=== PATIENT | female | born 1985 | race Caucasian/White ===

== ENCOUNTER 2017-02-25 09:28 | Emergency (ER) | payer OTHER ==
[~2017-02-25] VITALS: Ht 175.3 cm; Wt 75.4 kg
[~2017-02-25 09:28] MED LIST: bactrim; keflex
[2017-02-25 09:44] VITALS: BP 121/79
== END 2017-02-25 10:55 | disposition home or self-care (01) ==
LOC: ED 10:30
DX: L03.116 Cellulitis of left lower limb (principal)
CPT/HCPCS: 99283

== ENCOUNTER 2020-06-18 22:29 | Emergency (ER) | payer OTHER ==
[~2020-06-18] VITALS: Ht 172.7 cm; Wt 71.9 kg
--- NOTE | 2020-06-18 22:45 | NUR ---
Felice pop in ED - 06/19/20 at 0033 by [facility] IN PT SPEAKS FULL SENTENCES GETS CONFUSSED AT TIMES...
[2020-06-18] MEDS ORDERED: ACETAMINOPHEN 325 MG TABLET PO ONE (23:30)
[2020-06-18 23:33] LABS: BASOPHILS % (AUTO) 1 % (0-1); EOSINOPHILS % (AUTO) 0 % (1-7); LYMPHOCYTES % (AUTO) 8 % (22-44); MEAN CORPUSCULAR HEMOGLOBIN 29.2 pg (27.0-34.8); MEAN CORPUSCULAR HGB CONC 33.7 g/dL (32.4-35.8); MEAN PLATELET VOLUME 7.4 fL (7.4-10.4); MONOCYTES % (AUTO) 7 % (2-9); NEUTROPHILS % (AUTO) 84 % (42-75); PLATELET COUNT 133 x10^3/uL (130-400); RED BLOOD COUNT 4.79 x10^6/uL (3.82-5.3); RED CELL DISTRIBUTION WIDTH 12.9 % (9.6-15.2)
[2020-06-18 23:41] LABS: ALBUMIN 3.4 g/dL (3.4-5.0); ANION GAP 4 mmol/L (5-15); CALCIUM 8.3 mg/dL (8.5-10.1); CHLORIDE 108 mmol/L (98-107); CREATININE 0.79 mg/dL (0.55-1.02)
[2020-06-18 23:43] LABS: MD NO
[2020-06-18 23:45] LABS: TROPONIN I < 0.015 ng/mL (0.000-0.045)
[2020-06-19] MEDS ORDERED: ACETAMINOPHEN 500 MG TABLET ONE (00:08)
--- NOTE | 2020-06-19 00:12 | NUR ---
TASK RN: PT. MEDICATED PER MAR AND PROVIDED WTIH PO FLUIDS.
[2020-06-19 00:36] VITALS: BP 116/75
== END 2020-06-19 01:10 | disposition home or self-care (01) ==
LOC: ED 23:36
DX: U07.1 COVID-19 (principal); R07.89 Other chest pain; R00.0 Tachycardia, unspecified
CPT/HCPCS: 36415; 71045; 80048; 82040; 84484; 84703; 85025; 93005; 99285